=== PATIENT | male | born 1975 | race Hispanic/Latino ===

== ENCOUNTER → 2021-04-26 | Outpatient (CLI) | payer BC | LOC: SLEEP 19:42 | PROVIDERS: ATTEND Internal Medicine | DX: G47.33 Obstructive sleep apnea (adult) (pediatric) (principal) | CPT/HCPCS: 95810 ==

== ENCOUNTER → 2021-07-26 | Outpatient (CLI) | payer BC | LOC: SLEEP 11:12 | PROVIDERS: ATTEND Internal Medicine | DX: G47.30 Sleep apnea, unspecified (principal) | CPT/HCPCS: 95811 ==